=== PATIENT | female | born 1975 | race American Indian/Alaskan Native ===

== ENCOUNTER 2021-06-25 23:16 | Emergency (ER) | payer MEDICAID, OTHER ==
--- NOTE | 2021-06-26 00:32 | XRay Report ---
LEFT HAND 3 VIEWS INDICATION / CLINICAL INFORMATION: Injury with left hand pain. COMPARISON: None available. FINDINGS: BONES / JOINT(S): No definite acute fracture or subluxation. No significant arthritis. SOFT TISSUES: There is a small calcific or ossific density along the lateral margin of the first meta carpal head, probably related to old trauma or heterotopic ossification. There does appear to be mild soft tissue swelling in this region, however. ADDITIONAL FINDINGS: None. Signer Name: Shabbir Lozano MD Signed: 06/26/2021 12:28 AM Workstation Name: [id number]
[2021-06-26] MEDS ORDERED: HYDROcodone/ACETAMINOPHEN 5-325 MG TAB PO ONE (05:01)
--- NOTE | 2021-06-26 05:29 | Emergency Department Report ---
Upper Extremity - HPI Chief Complaint: Extremity Injury, Upper Stated Complaint: SPRAIN THUMB Time Seen by Provider: 06/26/21 05:08 Upper Extremity: Left Thumb (Left lateral thumb pain) Occurred When: >5 Days Mechanism: Hit with Object Severity: moderate Symptoms: Yes Pain with Movement, Yes Limited Range of Movement, Yes Swelling, No Deformity, No Numbness, No Weakness, No Bruising/Ecchymosis, No Laceration or Abrasion Other History: Is a 46-year-old female who states she banged her left thumb on a doorknob at home 1 week ago. Now with pain and swelling to same. Pain is rated at 5/10 sharp and achy exacerbated by movement and palpation. Pain is relieved by nothing tried patient attempted [id number] Velcro thumb spica. However symptoms remain. Patient has not seen orthopedic surgery. ED Review of Systems ROS: Stated complaint: SPRAIN THUMB Other details as noted in HPI Constitutional: denies: chills, fever Eyes: denies: eye pain, eye discharge, vision change ENT: denies: ear pain, throat pain Respiratory: denies: cough, shortness of breath, wheezing Cardiovascular: denies: chest pain, palpitations Endocrine: no symptoms reported Gastrointestinal: denies: abdominal pain, nausea, diarrhea Genitourinary: denies: urgency, dysuria, discharge Musculoskeletal: joint swelling. denies: back pain Skin: denies: rash, lesions Neurological: denies: headache, weakness, paresthesias Psychiatric: denies: anxiety, depression Hematological/Lymphatic: denies: easy bleeding, easy bruising ED Past Medical Hx - Past Medical History Hx GERD: Yes Additional medical history: Vaginal delivery x 6 - Surgical History Additional Surgical History: Tualigation - Social History Smoking Status: Never Smoker Substance Use Type: Alcohol, Prescribed - Medications Home Medications: Home Medications Medication Instructions Recorded Confirmed Last Taken Type Omeprazole [PriLOSEC] 20 mg PO BID #20 cap 06/08/14 08/07/14 08/07/14 Rx Ibuprofen [Motrin 600 MG tab] 600 mg PO Q8H PRN #60 tablet 08/08/14 Unknown Rx Nitrofurantoin Gem/M-Cryst 100 mg PO Q12HR #14 capsule 08/08/14 Unknown Rx [Macrobid] traMADoL [Ultram 50 MG tab] 50 mg PO Q6HR PRN #14 tablet 08/08/14 Unknown Rx traMADoL [Ultram] 50 mg PO Q6HR PRN #12 tablet 06/26/21 Unknown Rx Upper Extremity Exam - Exam General: Vital signs noted. No distress. Alert and acting appropriately. Head and Torso: No HEENT Abnormality, No Neck Tenderness, No Chest/Lungs Abnormality, No Abdominal Tenderness, No Back Tenderness Shoulder Exam: Yes Normal Range of Motion in Shoulder, No Shoulder Tenderness, No Clavicle Tenderness, No Shoulder Deformity, No AC Joint Tenderness Arm Exam: No Arm/Humerus Tenderness, No Arm Deformity Elbow: No Elbow Tenderness, No Normal Range of Motion in Elbow, No Elbow Deformity Forearm: No Forearm Tenderness, No Forearm Deformity, No Pain with Pronation, No Pain with Supination Wrist: Yes Normal ROM in Wrist, No Wrist Tenderness, No Wrist Deformity, No Snuffbox Tenderness Hand: Yes Hand Tenderness (Shaft left thumb), No Hand Deformity, No Digit Tenderness, No Normal ROM in Digit(s), No Digit(s) Deformity, No Tendon Dysfunction (None) CMS Exam: Yes Normal Distal Pulses, Yes Normal Capillary Refill, Yes Normal Distal Sensation, No Broken Skin ED Course Vital Signs 06/25/21 23:42 Temperature 98.8 F Pulse Rate 75 Respiratory 18 Rate Blood Pressure 174/94 O2 Sat by Pulse 100 Oximetry ED Medical Decision Making - Radiology Data Radiology results: report reviewed, image reviewed LEFT HAND 3 VIEWS INDICATION / CLINICAL INFORMATION: Injury with left hand pain. COMPARISON: None available. FINDINGS: BONES / JOINT(S): No definite acute fracture or subluxation. No significant ar thritis. SOFT TISSUES: There is a small calcific or ossific density along the lateral margin of the first metacarpal head, probably related to old trauma or heterotopic ossification. There does appear to be mild soft tissue swelling in this region, however. ADDITIONAL FINDINGS: None. Signer Name: Shabbir Lozano MD Signed: 06/26/2021 12:28 AM Workstation Name: [id number] Transcribed By: RT Dictated By: Shabbir Lozano MD Electronically Authenticated By: Shabbir Lozano MD Signed Date/Time: 06/26/2127 DD/ TD/TT: - Medical Decision Making Distal pulses intact GROUP PRESIDENT less than 3 seconds , patient for Velcro thumb spica at this time, splint check complete distal pulses are intact GROUP PRESIDENT less than 3 seconds bilateral patient will be DC'd home at this time with prescriptions. Patient verbalized agreement understanding discharge plan patient DC'd home in stable condition at this time. Critical care attestation.: If time is entered above; I have spent that time in minutes in the direct care of this critically ill patient, excluding procedure time. ED Disposition Clinical Impression: Left thumb sprain Qualifiers: Encounter type: initial encounter Sprain of finger site: interphalangeal joint Qualified Code(s): S63.622A - Sprain of interphalangeal joint of left thumb, initial encounter Disposition: HOME / SELF CARE / HOMELESS Is pt being admited?: No Does the pt Need Aspirin: No Condition: Stable Instructions: Finger Sprain (ED), Jammed Finger Additional Instructions: Take medication as prescribed, use thumb spica splint as directed. Follow-up with your doctor in 2 to 3 days. Return to emergency department should symptoms worsen. Prescriptions: traMADoL [Ultram] 50 mg PO Q6HR PRN #12 tablet PRN Reason: Pain Referrals: SHABBIR CYR MD [Staff Physician] - 3-5 Days Forms: Work/School Release Form(ED) Time of Disposition: 05:44
[2021-06-26 06:14] VITALS: BP 148/86
== END 2021-06-26 06:07 | disposition home or self-care (01) ==
LOC: ED 23:16
DX: S63.622A Sprain of interphalangeal joint of left thumb, initial encounter (principal); K21.9 Gastro-esophageal reflux disease without esophagitis; Z98.51 Tubal ligation status; Z88.2 Allergy status to sulfonamides; W22.8XXA Striking against or struck by other objects, initial encounter; Y93.89 Activity, other specified; Y92.89 Other specified places as the place of occurrence of the external cause; Y99.8 Other external cause status
CPT/HCPCS: 99283